=== PATIENT | male | born 1980 | race American Indian/Alaskan Native ===

== ENCOUNTER 2021-01-07 04:21 | Emergency (ER) | payer BC ==
--- NOTE | 2021-01-07 04:59 | Emergency Department Report ---
ED Laceration HPI - HPI Chief Complaint: Wound/Laceration Stated Complaint: HEAD LACERATION Time Seen by Provider: 01/07/21 04:44 Location: Head Severity: mild Tetanus Status: Up to Date Laceration Symptoms: Yes Pain, No Foreign Body Sensation, No Numbness, No Weakness Other History: 32-year-old male was attempting to change a light fixture when he lost control and fell striking him on the left forehead resulting in bleeding to presents emergency department for laceration evaluation and further treatment options. No loss of consciousness no headache no blurry vision no numbness tingling no ED Review of Systems ROS: Stated complaint: HEAD LACERATION Other details as noted in HPI Comment: All other systems reviewed and negative ED Past Medical Hx - Past Medical History Previous Medical History?: No - Surgical History Past Surgical History?: No - Social History Smoking Status: Never Smoker Substance Use Type: None Laceration Physical Exam - Exam General: Vital signs noted. No distress. Alert and acting appropriately. Wound Length (cm): 1 Laceration Location: Head Full Body Front + Back: 1 - Laceration area Laceration Exam: No Foreign Body, No Exposed Tendon, Vessel, or Nerve, No Tendon Injury, No Normal Distal CMS - Laceration /Wound Repair Left Frontal Wound Location: face Wound Length (cm): 1 Wound's Depth, Shape: linear Betadine Prep?: Yes Wound Repaired With: Dermabond ED Medical Decision Making - Medical Decision Making 32-year-old male status post laceration to the l left forehead region not involving the brow presents complaining of pain. The wound was closed with tissue adhesive with no complications good wound approximation and it was tolerated well he was he was provided with instructions. Critical care attestation.: If time is entered above; I have spent that time in minutes in the direct care of this critically ill patient, excluding procedure time. ED Disposition Clinical Impression: Facial laceration Disposition: DC-01 TO HOME OR SELFCARE Is pt being admited?: No Does the pt Need Aspirin: No Condition: Stable Instructions: Laceration Care, Adult, Sutures, Onesimo, or Adhesive Wound Closure Referrals: PRIMARY CARE, [Primary Care Provider] - 3-5 Days
[2021-01-07 05:01] VITALS: BP 146/88
== END 2021-01-07 05:05 | disposition home or self-care (01) ==
LOC: ED 04:21
DX: S01.81XA Laceration without foreign body of other part of head, initial encounter (principal); W19.XXXA Unspecified fall, initial encounter; Y93.89 Activity, other specified; Y92.89 Other specified places as the place of occurrence of the external cause; Y99.8 Other external cause status
CPT/HCPCS: 99281